=== PATIENT | male | born 1950 | race Caucasian/White ===

== ENCOUNTER 2017-08-15 07:41 | Outpatient (CLI) | payer MEDICARE ==
--- NOTE | 2017-08-15 09:56 | CT ---
CT CHEST WITHOUT CONTRAST: Multiple axial tomograms were obtained through the chest without IV enhancement. Low-dose screening protocol was followed. HISTORY: Long history of tobacco use. Smoked for over 30 years. FINDINGS: No evidence of pulmonary nodule or mass. No infiltrate or effusion. Mediastinum is unremarkable. I mages through the upper abdomen appear unremarkable. IMPRESSION: No acute finding. This is a lung RADS category 1. Continued annual screening low-dose CT chest rufina mmended. POS: FELI
== END 2017-08-15 07:42 | disposition home or self-care (01) ==
LOC: CT 07:41
PROVIDERS: ATTEND Family Medicine
DX: Z87.891 Personal history of nicotine dependence (principal); Z13.6 Encounter for screening for cardiovascular disorders
CPT/HCPCS: G0297

== ENCOUNTER 2019-04-16 15:16 | Outpatient (CLI) | payer MEDICARE ==
--- NOTE | 2019-04-16 15:52 | RAD ---
LUMBAR SPINE FOUR VIEWS: HISTORY: Lumbar radiculopathy. Sciatic pain and burning down the left leg. Pain goes slowly down the right l eg, x1 year. FINDINGS: AP, lateral neutral, lateral flexion, and extension views demonstrate five lumbar type vertebrae. Ve rtebral body height is maintained. Spondylolisthesis: T12-L1: There is 3 mm of retrolisthesis of T12 upon L1 in the neutral position. Upon flexion, retro listhesis resolves. Upon extension, there is 3.2 mm of anterolisthesis. L3-L4: There is 3 mm neutral; 2.8 mm flexion; 2.2 mm extension. L4-L5: There is 2.8 mm neutral; none upon flexion; none upon extension. IMPRESSION: Degenerative changes of the lumbar spine and spondylitic changes, as above. Transcribed Date/Time: 04/16/2019 4:07 PM
--- NOTE | 2019-04-16 16:19 | MRI ---
MRI lumbar spine noncontrast: HISTORY: Lumbar radiculopathy. Static pain, running down the left leg is slowly going down the right leg times one year COMPARISON: None FINDINGS: Appropriate T1 marrow signal intensity of the lumbar vertebra. Vertebral body height is maintained. N o fracture. No significant STIR hyperintensity to suggest vertebral body edema or ligamentous injury T2 hyperintensities in the left or right renal pelvis, likely representing parapelvic cysts Appropriate signal intensity of the paraspinal muscles. Conus medullaris terminates at the mid The overall AP diameter is narrowed secondary to congenitally foreshortened pedicles T12-L1:Adequate disc hydration. No significant central canal stenosis or neural foraminal narrowing L1-L2:Mild loss of disc space height. Left right paracentral disc bulges with resultant mild central canal stenosis. Mild bilateral foraminal narrowing. L2-L3:Mild loss of disc height and mild disc desiccation. Broad-based disc bulge with a central disc protrusion. Mild ligamentum flavum thickening and facet hypertrophy. Moderate central canal stenosis. Mild bilateral neural foraminal narrowing. L3-L4:Desiccation with mild loss of disc space height. There is a broad-based disc bulge with a small central disc protrusion. Possible associated annular fissure. Ligament flavum thickening and facet hypertrophy are present. Mild to moderate central canal stenosis. Moderate right and [id number] left foraminal narrowing. L4-L5:Disc desiccation with mild loss of disc space height. Broad-based disc bulge, ligament flavum t hickening and facet hypertrophy result in severe central canal stenosis. Mild to moderate bilateral foraminal narrowing. L5-S1:Mild loss of disc space height. Broad-based disc bulge, ligamentum flavum thickening and facet hypertrophy. No significant central canal stenosis. Bilaterally, neural foramina are patent. IMPRESSION: 1. 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 2. Moderate central canal stenosis at L2-L3, [id number] central vessels at L3-L4 and severe ijeoma tral canal stenosis at L4-L5. 3. Multilevel neural foraminal narrowing as described above
== END 2019-04-16 15:17 | disposition home or self-care (01) ==
LOC: TBSIIMAG 15:16
PROVIDERS: ATTEND Surgery
DX: M47.26 Other spondylosis with radiculopathy, lumbar region (principal); M48.061 Spinal stenosis, lumbar region without neurogenic claudication
CPT/HCPCS: 72110; 72148

== ENCOUNTER 2019-05-11 08:01 | Day surgery (SDC) | payer MEDICARE ==
[2019-05-10 10:41] VITALS: BMI 26.5
[2019-05-11] MEDS ORDERED: Thrombin 5000 UNITS/5 ML VIAL ONE (09:35)
[2019-05-11] MEDS ORDERED: Sodium Chloride 0.9% 10 ML ONE (09:35)
[2019-05-11 09:47] LABS: #Basophils 0.1 thou/uL (0.0-0.2); #Eosinphils 0.1 thou/uL (0.0-0.7); #Lymphocytes 2.3 thou/uL (1.20-3.40); #Monocytes 0.5 thou/uL (0.11-0.59); #Neutrophils 3.9 thou/uL (1.40-6.50); %Basophils 0.9 % (0.0-1.0); %Eosinophils 0.8 % (0.0-10.0); %Lymphocytes 33.7 % (21.0-51.0); %Monocytes 7.6 % (0.0-10.0); Hemoglobin 15.4 g/dL (14.0-18.0); Mean Corpuscular HGB CONC 35.1 g/dL (32.0-36.0); Mean Corpuscular Volume 93.9 fL (78.0-98.0); Mean Platelet Volume 7.1 fL (7.4-10.4); Platelet Count 295 thou/uL (130-400); RBC Distribution Width 11.3 % (11.5-14.5); Red Blood Cell (RBC) Count 4.68 mill/uL (4.70-6.10); White Blood Cell (WBC) Count 6.8 thou/uL (4.8-10.8)
[2019-05-11 09:53] LABS: PTT 27.8 SEC (22.9-36.1); Prothrombin Time 13.2 SEC (12.0-14.7)
[2019-05-11 10:13] LABS: Anion Gap 11 mmol/L (10-20); BUN (Urea Nitrogen) 16 mg/dL (8.4-25.7); Calc. Creatinine Clearance 121 mL/min (70-130); Carbon Dioxide 25 mmol/L (23-31); Chloride 106 mmol/L (98-107); Estimated GFR-MDRD Greater than 90; Glucose 111 mg/dL (80-115); Potassium 3.7 mmol/L (3.5-5.1); Sodium 138 mmol/L (136-145)
[2019-05-11] MEDS ORDERED: Midazolam HCl 2 mg/2 ml Vial ONE (10:38)
[2019-05-11] MEDS ORDERED: Fentanyl 250 MCG/5 ML VIAL ONE (10:38)
[2019-05-11] MEDS ORDERED: PHENYLEPHRINE-NS 100 MCG/ML 10 ML SYRINGE ONE (12:31)
[2019-05-11] MEDS ORDERED: HYDROmorphone 2 MG/ML VIAL ONE ×2 (13:25→14:17)
[2019-05-11] MEDS ORDERED: Bisacodyl 10 MG SUPP PR PRN (13:58)
[2019-05-11] MEDS ORDERED: Milk Of Magnesia 30 ML UDCUP PO PRN (13:58)
[2019-05-11] MEDS ORDERED: Acetaminophen 325 MG TAB PO PRN (13:58)
[2019-05-11] MEDS ORDERED: Morphine 2 MG/ML SYRINGE SLOW IVP PRN (13:58)
[2019-05-11] MEDS ORDERED: Mag-Al 1200 mg/1200 mg/30 ML UDCUP PO PRN (13:58)
[2019-05-11] MEDS ORDERED: traMADol HCl 50 MG TAB PO PRN (13:58)
[2019-05-11] MEDS ORDERED: Ondansetron PF 4 MG/2 ML Vial IVP PRN (13:58)
[2019-05-11] MEDS ORDERED: Fleet Enema 133 ML BOT PR PRN (13:58)
[2019-05-11] MEDS ORDERED: Lorazepam 0.5 MG TAB PO PRN (14:00)
[2019-05-11] MEDS ORDERED: Fentanyl 100 MCG/2 ML VIAL ONE (14:53)
[2019-05-11] MEDS: HYDROcodone/Acetaminophen 7.5/325 mg Tablet PO PRN ×2 (18:25→23:35)
[2019-05-11] MEDS: CEFAZOLIN 2 GM in Premix Bag 1 BAG IVPB SCH (18:25)
[2019-05-11] MEDS: Sodium Chloride 0.9% 1,000 ML IV SCH (18:33)
[2019-05-11] MEDS ORDERED: DULoxetine 60 MG CAP PO SCH (21:00)
[2019-05-11] MEDS ORDERED: Losartan 25 MG TAB PO SCH (21:00)
[2019-05-11] MEDS ORDERED: LOSARTAN 50 MG PO SCH (21:00)
[2019-05-11] MEDS: Acetaminophen/Codeine 30-300mg Tablet PO PRN (21:10)
[2019-05-11] MEDS: tiZANidine HCl 4 MG TAB PO PRN (21:10)
[2019-05-12] MEDS: CEFAZOLIN 2 GM in Premix Bag 1 BAG IVPB SCH (02:19)
[2019-05-12] MEDS: Sodium Chloride 0.9% 1,000 ML IV SCH (03:01)
[2019-05-12] MEDS: HYDROcodone/Acetaminophen 7.5/325 mg Tablet PO PRN (04:52)
[2019-05-12] MEDS: tiZANidine HCl 4 MG TAB PO PRN (04:52)
--- NOTE | 2019-05-12 07:55 | PRG ---
DATE OF SERVICE: 05/12/2019 I saw Mr. Giang in his hospital room this morning. He is one day out from the laminectomy in the lumbar spine. His leg symptoms have gone. His back is sore but manageable. He is anxious to get out of the hospital. We carefully went over wound care, activity restrictions, and follow up, and he verbalized understanding. He is ready for discharge, sometime later this morning. Job ID: [id number]
[2019-05-12 08:28] VITALS: BP 100/68; TEMP 97.7
[2019-05-12] MEDS: Acetaminophen/Codeine 30-300mg Tablet PO PRN (08:41)
[2019-05-12] MEDS ORDERED: DULOXETINE 60 MG PO SCH (09:00)
--- NOTE | 2019-05-14 10:25 | OP ---
DATE OF PROCEDURE: 05/11/2019 PHARMACIST HOSPITAL: Efren Baldwin PA-C. PREPROCEDURE DIAGNOSIS: Low back and leg pain with lumbar stenosis and lumbar radiculopathy. POSTPROCEDURE DIAGNOSIS: Low back and leg pain with lumbar stenosis and lumbar radiculopathy. PROCEDURES PERFORMED: L2-L3, L3-L4, L4-L5 laminectomies, partial facetectomies, and foraminotomies over the L2, L3, L4, and L5 nerve roots. DESCRIPTION OF PROCEDURE: After informed consent was obtained from the patient, the patient was brought to the OR. Proper patient, pause, and identification were carried out. He was placed under excellent general endotracheal anesthesia and positioned prone on the OR table. All appropriate points were padded. We identified the L2, L3, L4, L5 nerve roots. A linear myra was made over this area. This region was sterilely cleansed, prepared, and draped. Proper patient, pause, and identification were carried out. The wound was then opened with a combination of sharp, monopolar, and blunt dissection. The L2, L3, L4, and L5 dorsal spines and laminas were exposed. Localization film confirmed our area of interest. We then performed L2, L3, L4, and L5 laminectomies, partial facetectomies, and foraminotomies following exposure and localization. Copious irrigation occurred throughout. We assured freedom of the common dural tube and all of the nerve roots at L2-L5. The wound was then closed in anatomic layers following meticulous hemostasis vancomycin powder. The patient was then emerged from anesthesia. Job ID: [id number]
--- NOTE | 2019-05-14 16:41 | EKG ---
Test Reason : PREOP Blood Pressure : / mmHG Vent. Rate : 069 BPM Atrial Rate : 069 BPM P-R Int : 152 ms QRS Dur : 104 ms QT Int : 408 ms P-R-T Axes : 061 038 047 degrees QTc Int : 437 ms Normal sinus rhythm Normal ECG No previous ECGs available Confirmed by TRES BLAIR ([id number]) on 05/14/2019 4:40:42 PM Referred By: JERROD Confirmed By:TRES BLAIR
== END 2019-05-12 09:03 | disposition home or self-care (01) ==
LOC: SDC 08:01 → SURG A 13:58 → SDC 05-12 09:03
PROVIDERS: ATTEND Surgery
PROC: 00NY0ZZ Release Lumbar Spinal Cord, Open Approach (ICD-10-PCS; principal; 2019-05-11)
DX: M48.062 Spinal stenosis, lumbar region with neurogenic claudication (principal); M54.16 Radiculopathy, lumbar region
CPT/HCPCS: 76000; 80048; 85025; 85610; 85730; 93005; 93010; J0131; J0690; J1170; J2250; J3010; J3370; J3490